=== PATIENT | female | born 1925 | race Caucasian/White ===

== ENCOUNTER 2016-03-27 12:58 | Emergency (ER) | payer MEDICARE, BC ==
[2016-03-27 13:19] VITALS: RESP 20; TEMP 97.2; O2SAT 94
[2016-03-27 14:31] VITALS: BP 130/51; PULSE 57
== END 2016-03-27 14:24 | disposition home or self-care (01) | DRG 151 ==
LOC: ED 12:58
DX: R04.0 Epistaxis (principal); Z79.01 Long term (current) use of anticoagulants
CPT/HCPCS: 99282; 99283

== ENCOUNTER 2016-08-20 08:54 | Emergency (ER) | payer MEDICARE, BC ==
[2016-08-20] MEDS ORDERED: MORPHINE SULFATE 10 MG/ML SOL IV PRN (09:07)
[2016-08-20] MEDS ORDERED: SODIUM CHLORIDE 0.9% FLUSH 10 ML SOL IV PRN (09:07)
[2016-08-20] MEDS ORDERED: NITROGLYCERIN 0.4 MG TAB SL PRN (09:07)
[2016-08-20 09:16] VITALS: TEMP 99.6
[2016-08-20 09:22] LABS: HEMATOCRIT 43 % (35-47); MEAN CORPUSCULAR HGB CONC 34.6 gm/dl (32.0-36.0); MEAN CORPUSCULAR VOLUME 88 fL (81-99)
[2016-08-20] MEDS ORDERED: ACETAMINOPHEN 500 MG 500 MG TAB PO ONE (09:31)
[2016-08-20] MEDS ORDERED: ACETAMINOPHEN 500 MG 500 MG TAB ONE (09:34)
[2016-08-20 09:39] LABS: CALCIUM 9.7 mg/dl (8.5-10.1); GLOM FILT RATE 83 mL/min (>60); POTASSIUM 3.8 mMol/L (3.5-5.1); SODIUM 142 mMol/L (136-145)
[2016-08-20 09:42] LABS: BASOPHILS % (MANUAL) 0 % (0-3); EOSINOPHILS % (MANUAL) 1 % (0-9); LYMPHOCYTES % (MANUAL) 45 % (10-50); NORMAL RBCS PRESENT
[2016-08-20 12:18] VITALS: RESP 30
[2016-08-20 12:19] VITALS: BP 133/65; PULSE 83; O2SAT 94
== END 2016-08-20 10:05 | disposition home or self-care (01) | DRG 313 ==
LOC: ED 08:54
DX: R07.89 Other chest pain (principal)
CPT/HCPCS: 36415; 71010; 80048; 82550; 84484; 85007; 85027; 85610; 85730; 93005; 99284

== ENCOUNTER 2016-09-07 09:37 | Emergency (ER) | payer MEDICARE, BC ==
[2016-09-07 09:53] VITALS: TEMP 98.2
[2016-09-07 10:16] LABS: HEMATOCRIT 41 % (35-47); MEAN CORPUSCULAR HGB CONC 35.2 gm/dl (32.0-36.0); MEAN CORPUSCULAR VOLUME 87 fL (81-99)
[2016-09-07 10:35] LABS: CALCIUM 9.3 mg/dl (8.5-10.1); GLOM FILT RATE 81 mL/min (>60); POTASSIUM 3.6 mMol/L (3.5-5.1); SODIUM 138 mMol/L (136-145)
[2016-09-07 10:39] LABS: BASOPHILS % (MANUAL) 0 % (0-3); EOSINOPHILS % (MANUAL) 0 % (0-9); NORMAL RBCS PRESENT
[2016-09-07 10:40] LABS: LYMPHOCYTES % (MANUAL) 40 % (10-50)
[2016-09-07 11:00] LABS: APPEARANCE,URINE Clear; BILIRUBIN,URINE NEGATIVE (NEGATIVE); COLOR,URINE Yellow; GLUCOSE, URINE (UA) NEGATIVE (NEGATIVE); KETONES,URINE NEGATIVE (NEGATIVE); LEUKOCYTE ESTERASE ,URINE NEGATIVE (NEGATIVE); NITRATE,URINE NEGATIVE (NEGATIVE); OCCULT BLOOD,URINE NEGATIVE (NEG-TRACE); UROBILINOGEN,URINE 0.2 (0.2-1.0 EU)
[2016-09-07 11:09] LABS: RBC,URINE 0-1 (0-3AV/HPF); WBC,URINE 0-1 (0-5AV/HPF)
[2016-09-07] MEDS ORDERED: LEVOFLOXACIN 25 MG/ML 750 MG in SODIUM CHLORIDE 0.9% 250 ML 150 ML IV SCH (12:00)
[2016-09-07] MEDS ORDERED: LEVOFLOXACIN 25 MG/ML SOL IV ONE (12:25)
[2016-09-07] MEDS ORDERED: SODIUM CHLORIDE 0.9% FLUSH 10 ML SOL IV PRN (12:50)
[2016-09-07 15:18] VITALS: BP 127/45; PULSE 122; RESP 16; O2SAT 91
== END 2016-09-07 14:55 | disposition home or self-care (01) | DRG 195 ==
LOC: ED 09:37
DX: J18.9 Pneumonia, unspecified organism (principal); I48.91 Unspecified atrial fibrillation; Z79.01 Long term (current) use of anticoagulants
CPT/HCPCS: 36415; 71010; 80048; 81001; 84484; 85007; 85027; 85610; 93005; 96365; 99284; 99285; J1956